=== PATIENT | male | born 1950 | race Caucasian/White ===

== ENCOUNTER 2017-11-23 12:10 | Inpatient (IN) | payer SELFPAY ==
[~2017-11-23] VITALS: Ht 167.6 cm; Wt 59.5 kg
[2017-11-23] VITALS (218 sets, daily range): BP systolic 164–197; BP diastolic 89–113; PULSE 86–99; TEMP 97.5; O2SAT 81–100
[2017-11-23] MEDS ORDERED: PERCOCET 325 MG1 TA2 PO (12:51)
[2017-11-23] MEDS ORDERED: B COMPLEX & B121 TAB (12:53)
[2017-11-23 14:03] LABS: BASO # 0.1 (0.0-0.2); BASO % 0.5 % (0.0-2.0); EOS % 0.2 % (0-4.0); GRAN # 6.8 (1.4-6.5); HEMATOCRIT 40.2 % (42.0-52.0); HEMOGLOBIN 14.3 g/dl (13.5-18.0); INR 0.9 (0.8-3.0); LYMPH # 1.4 (1.2-3.4); LYMPH % 15.6 % (20.0-51.0); MEAN CELL VOLUME 97 fl (80.0-100.0); MEAN CORPUSCULAR HEMOGLOBIN 34 pg (27.0-31.0); MEAN CORPUSCULAR HGB CONC 36 g/dl (33.0-37.0); MEAN PLATELET VOLUME 10.7 fl (7.4-10.4); MONO # 0.9 (0.1-0.6); MONO % 9.5 % (1.7-9.3); PLATELET COUNT 218 K/mm3 (130-400); PROTHROMBIN TIME 10.6 SECONDS (9.7-12.8); RED BLOOD COUNT 4.16 M/mm3 (4.20-5.60); REDCELL DISTRIBUTION WIDTH-CV 13.5 % (11.5-14.5)
[2017-11-23 14:06] LABS: PARTIAL THROMBOPLASTIN TIME 27.3 SECONDS (26.0-37.0)
[2017-11-23 14:09] LABS: ALBUMIN 4.9 gm/dL (3.5-5.0); BILIRUBIN,TOTAL 0.8 mg/dL (0.0-1.0); CALCIUM 9.4 mg/dL (8.4-10.2); CREATININE, serum 0.69 mg/dL (0.66-1.25); POTASSIUM 4.1 mmol/L (3.4-5.0); TOTAL PROTEIN 8.2 gm/dL (6.4-8.2)
[2017-11-23 14:26] LABS: COLLECTION METHOD CLEAN CATCH
[2017-11-23 14:34] LABS: MUCOUS Present /lpf; PH 6 (5-8); SQUAMOUS EPITHELIAL None Seen /hpf; URINE APPEARANCE Hazy; URINE BACTERIA None Seen /hpf; URINE BILIRUBIN Negative (NEGATIVE); URINE BLOOD Negative (NEGATIVE); URINE COLOR Amber; URINE GLUCOSE Negative (NEGATIVE); URINE KETONE 1+ (NEGATIVE); URINE LEUKOCYTE ESTERASE Negative (NEGATIVE); URINE NITRATE Negative (NEGATIVE); URINE PROTEIN(semi-quant) 2+ (NEGATIVE); URINE RBC 0-2 /hpf
[2017-11-23 14:39] LABS: ALCOHOL(ethanol),MEDICAL 32 mg/dL; LIPASE 232 U/L (23-300)
[2017-11-23 14:54] LABS: TROPONIN-I < 0.012 ng/mL (0.000-0.034)
[2017-11-23 15:04] LABS: INFLUENZA A NEGATIVE; INFLUENZA B NEGATIVE
[2017-11-24] VITALS (535 sets, daily range): BP systolic 132–165; BP diastolic 72–110; PULSE 76–107; TEMP 97.3–98.1; O2SAT 74–99
[2017-11-24 05:35] LABS: HEMATOCRIT 39.3 % (42.0-52.0); HEMOGLOBIN 13.6 g/dl (13.5-18.0); MEAN CELL VOLUME 97 fl (80.0-100.0); MEAN CORPUSCULAR HEMOGLOBIN 34 pg (27.0-31.0); MEAN CORPUSCULAR HGB CONC 35 g/dl (33.0-37.0); MEAN PLATELET VOLUME 10.5 fl (7.4-10.4); PLATELET COUNT 196 K/mm3 (130-400); RED BLOOD COUNT 4.04 M/mm3 (4.20-5.60); REDCELL DISTRIBUTION WIDTH-CV 13.4 % (11.5-14.5)
[2017-11-24 05:52] LABS: INR 1.1 (0.8-3.0); PROTHROMBIN TIME 12.2 SECONDS (9.7-12.8)
[2017-11-24 05:53] LABS: BILIRUBIN,TOTAL 1.1 mg/dL (0.0-1.0); CALCIUM 8.8 mg/dL (8.4-10.2); CREATININE, serum 0.66 mg/dL (0.66-1.25); MAGNESIUM 2.1 mg/dL (1.6-2.3); POTASSIUM 3.8 mmol/L (3.4-5.0); TOTAL PROTEIN 7.2 gm/dL (6.4-8.2)
[2017-11-24 06:18] LABS: BAND 14 % (0-10); LYMPHOCYTE 28 % (20.0-51.0); NEUTROPHILS 48 % (42.0-75.2)
[2017-11-24 06:19] LABS: PLATELET ESTIMATE NORMAL (NORMAL)
[2017-11-24 06:20] LABS: ANISOCYTOSIS 1+; TARGET CELLS 1+
[2017-11-25] VITALS (9 sets, daily range): BP systolic 133–175; BP diastolic 63–106; PULSE 72–99; TEMP 97.4–98.7
[2017-11-25 06:51] LABS: FACTOR V LEIDEN MUTATION B Negative (Negative); PARTIAL THROMBLASTIN TIME 26.5 seconds (25.0-35.0); PT G20210A MUTATION B Negative (Negative)
[2017-11-25 09:02] LABS: HEMATOCRIT 37.2 % (42.0-52.0); HEMOGLOBIN 12.8 g/dl (13.5-18.0); MEAN CELL VOLUME 98 fl (80.0-100.0); MEAN CORPUSCULAR HEMOGLOBIN 34 pg (27.0-31.0); MEAN CORPUSCULAR HGB CONC 34 g/dl (33.0-37.0); MEAN PLATELET VOLUME 10.7 fl (7.4-10.4); PLATELET COUNT 172 K/mm3 (130-400); RED BLOOD COUNT 3.78 M/mm3 (4.20-5.60); REDCELL DISTRIBUTION WIDTH-CV 13.2 % (11.5-14.5)
[2017-11-25 13:40] LABS: LUPUS ANTICOAGULANT PT 10.9 sec (())
[2017-11-26] VITALS (9 sets, daily range): BP systolic 124–160; BP diastolic 57–92; PULSE 77–100; TEMP 97.3–98.5
[2017-11-26 07:44] LABS: BASO # 0.1 (0.0-0.2); BASO % 0.8 % (0.0-2.0); EOS # 0.2 (0.0-0.7); EOS % 2.5 % (0-4.0); GRAN % 52.9 % (42.2-75.2); HEMATOCRIT 38.1 % (42.0-52.0); HEMOGLOBIN 13.4 g/dl (13.5-18.0); LYMPH # 2.2 (1.2-3.4); LYMPH % 29.9 % (20.0-51.0); MEAN CELL VOLUME 98 fl (80.0-100.0); MEAN CORPUSCULAR HEMOGLOBIN 34 pg (27.0-31.0); MEAN CORPUSCULAR HGB CONC 35 g/dl (33.0-37.0); MEAN PLATELET VOLUME 11.5 fl (7.4-10.4); MONO % 13.5 % (1.7-9.3); PLATELET COUNT 164 K/mm3 (130-400); REDCELL DISTRIBUTION WIDTH-CV 13.2 % (11.5-14.5)
[2017-11-26 07:53] LABS: INR 1.1 (0.8-3.0); PROTHROMBIN TIME 12.3 SECONDS (9.7-12.8)
[2017-11-26 07:54] LABS: CALCIUM 9.3 mg/dL (8.4-10.2); CREATININE, serum 0.65 mg/dL (0.66-1.25); POTASSIUM 3.9 mmol/L (3.4-5.0)
[2017-11-27 00:23] VITALS: BP 166/79; PULSE 94; TEMP 97.7
[2017-11-27 02:25] VITALS: BP 107/83; PULSE 89; TEMP 98.2
[2017-11-27 05:09] VITALS: BP 142/66; PULSE 79; TEMP 98
[2017-11-27 06:47] LABS: HEMATOCRIT 38.1 % (42.0-52.0); HEMOGLOBIN 13.1 g/dl (13.5-18.0); MEAN CELL VOLUME 99 fl (80.0-100.0); MEAN CORPUSCULAR HEMOGLOBIN 34 pg (27.0-31.0); MEAN CORPUSCULAR HGB CONC 34 g/dl (33.0-37.0); MEAN PLATELET VOLUME 11.2 fl (7.4-10.4); PLATELET COUNT 173 K/mm3 (130-400); RED BLOOD COUNT 3.86 M/mm3 (4.20-5.60); REDCELL DISTRIBUTION WIDTH-CV 13.2 % (11.5-14.5)
[2017-11-27 07:00] LABS: INR 1.1 (0.8-3.0); PROTHROMBIN TIME 12.5 SECONDS (9.7-12.8)
[2017-11-27 07:53] VITALS: BP 138/86; PULSE 91; TEMP 98.4
[2017-11-27 09:46] VITALS: BP 148/86; PULSE 89; TEMP 97.7
[2017-11-27 09:59] LABS: PROTEIN C ACTIVITY 117 % (70-150)
[2017-11-27 10:01] LABS: ANTI-THROMBIN III 83 % (72-128)
[2017-11-27] MEDS ORDERED: NICODERM C21 MG/PATC TD (10:14)
[2017-11-27] MEDS ORDERED: LOVENOX 100100 MG/ML SQ (10:15)
[2017-11-27] MEDS ORDERED: COUMADIN 2MG2 MG/TAB PO (10:20)
[2017-11-27] MEDS ORDERED: ZESTRIL 5MG5 MG PO (10:21)
[2017-11-27] MEDS ORDERED: PEPCID 20MG TAB20 MG PO (10:22)
[2017-11-27] MEDS ORDERED: FOLIC ACID 11 MG/TA1 PO (10:22)
[2017-11-27 11:42] VITALS: BP 145/92; PULSE 97; TEMP 97.8
== END 2017-11-27 14:45 | disposition home or self-care (01) | DRG 176 ==
LOC: COL.ER 12:10 → ICU 16:31 → EDBEDREQ 16:49 → SURG 11-24 12:13
PROVIDERS: Emergency Medicine; Internal Medicine; Physician Assistant
DX: I26.99 Other pulmonary embolism without acute cor pulmonale (principal); E44.0 Moderate protein-calorie malnutrition; J44.9 Chronic obstructive pulmonary disease, unspecified; I10 Essential (primary) hypertension; F10.10 Alcohol abuse, uncomplicated; Y90.1 Blood alcohol level of 20-39 mg/100 ml; F17.210 Nicotine dependence, cigarettes, uncomplicated; Z91.81 History of falling; W18.2XXA Fall in (into) shower or empty bathtub, initial encounter; Z68.21 Body mass index [BMI] 21.0-21.9, adult
CPT/HCPCS: 99223-AI; 99232-AI; 99233-AI; 99239; J1630; J1644; J1650; J2060; J3411; J3475; J7030; J7050; Q9967

== ENCOUNTER 2019-09-13 06:57 | Day surgery (SDC) | payer SELFPAY ==
--- NOTE | 2019-07-26 08:20 | NUR ---
Patient ambulatory to [facility]. States that he did not do a prep and did not receive any instructions in the mail from the office. Dr. Buchanan here and procedures cancelled for today. Given instructions and directions to Dr. Buchanan's office to go and get prep instructions and to have the procedure rescheduled for another date. Patient escorted to the elevators.
[~2019-09-13] VITALS: Ht 167.6 cm; Wt 58.2 kg
[~2019-09-13 06:57] MED LIST: B COMPLEX & B121 TAB; COUMADIN 2MG2 MG/TAB PO; FOLIC ACID 11 MG/TA1 PO; LOVENOX 100100 MG/ML SQ; NICODERM C21 MG/PATC TD; PEPCID 20MG TAB20 MG PO; PERCOCET 325 MG1 TA2 PO; ZESTRIL 5MG5 MG PO
[2019-09-13] MEDS ORDERED: CARAFATE 1GM1 G PO (07:17)
[2019-09-13] MEDS ORDERED: COUMADIN 5MG5 MG/TAB PO (07:17)
[2019-09-13] MEDS ORDERED: COUMADIN 2MG2 MG/TAB PO (07:17)
[2019-09-13] MEDS ORDERED: PERCOCET 325 MG1 TA3 PO (07:18)
[2019-09-13] MEDS ORDERED: PRINZIDE 12.5 M1 TAB PO (07:19)
[2019-09-13] MEDS ORDERED: PEPCID40 MG PO (07:20)
[2019-09-13 07:25] VITALS: BP 158/86; PULSE 58; TEMP 98.2
[2019-09-13] MEDS ORDERED: PRILOSEC 20MG20 MG PO (09:11)
[2019-09-13 09:25] VITALS: BP 145/73; PULSE 74; TEMP 97.7
--- NOTE | 2019-09-13 09:25 | NUR ---
The patient arrived back to [facility] via cart at this time. The patient ambulated from the cart to the recliner in his room with the stand by assistance of two nurses and appeared to tolerate the activity well. Post procedure vital signs were started at this time. The patient requests to try some coffee and a muffin at this time. Call light is with reach. Fresh warm blankets were given to the patient. Will continue to monitor the patient.
[2019-09-13 09:40] VITALS: BP 147/81; PULSE 64
--- NOTE | 2019-09-13 09:40 | NUR ---
The patient is sitting up in the recliner eating his food and drink and appears tolerating both well. Vital signs appear stable. Call light remains within reach. Will continue to monitor the patient.
--- NOTE | 2019-09-13 09:55 | NUR ---
The patient has finished speaking with the doctor and has more questions he would like to speak with him about. The patient has finished his food and drink. Will continue to monitor the patient.
[2019-09-13 09:57] VITALS: BP 144/77; PULSE 69
[2019-09-13 10:10] VITALS: BP 145/72; PULSE 78
--- NOTE | 2019-09-13 10:10 | NUR ---
The patient voices a desire to be discharged home.
--- NOTE | 2019-09-13 10:20 | NUR ---
Discharge instructions were reviewed with the patient at this time. He verbalized understanding and has no questions for the nurse at this time. The patient's IV to his right forearm was removed and a pressure dressing was applied to the site. The nurse instructed the patient to get dressed and notify the staff when he is ready to be escorted out.
--- NOTE | 2019-09-13 10:30 | NUR ---
The patient was escorted out via ambulation using a steady gait and appeared to tolerate the activity well. The patient's belongings and discharge paperwork were sent with him. The patient's is present to drive him home.
== END 2019-09-13 10:30 | disposition home or self-care (01) ==
LOC: SDCO 06:57
DX: D12.3 Benign neoplasm of transverse colon (principal); K64.0 First degree hemorrhoids; K57.30 Diverticulosis of large intestine without perforation or abscess without bleeding; K44.9 Diaphragmatic hernia without obstruction or gangrene; K29.60 Other gastritis without bleeding; J44.9 Chronic obstructive pulmonary disease, unspecified; I10 Essential (primary) hypertension; K21.9 Gastro-esophageal reflux disease without esophagitis; Z86.711 Personal history of pulmonary embolism; G89.29 Other chronic pain
CPT/HCPCS: J0360; J2704; J3010